=== PATIENT | female | born 1980 | race Caucasian/White ===

== ENCOUNTER 2021-02-16 08:40 | Inpatient (IN) | payer BC ==
[~2021-02-16] VITALS: Ht 157.5 cm; Wt 70.5 kg
--- NOTE | ~2021-02-16 | PROC ---
[address] [address] PROCEDURE REPORT Name: EMMA SHARP Room: [address] IN M.R.#: [id number] Admission: 02/16/21 Attend Phys: Joey Lawton Discharge: 02/22/21 Date of : 78 Report #: [id number] THIS REPORT FOR: cc: Laure Warner Linda J. DO SHELLY,Medical Records Staff ~ For Gi report, please see the Provation report in Perceptive 7 content. By: 1017Medical Records Staff SHELLY /SOSA
--- NOTE | ~2021-02-16 | PROC ---
[address] [address] PROCEDURE REPORT Name: EMMA SHARP Room: [address] IN M.R.#: [id number] Admission: 02/16/21 Attend Phys: Joey Lawton Discharge: 02/22/21 Date of : 78 Report #: [id number] THIS REPORT FOR: cc: Laure Warner Linda J. DO SHELLY,Medical Records Staff ~ For GI report, please see the Provation report in Perceptive 7 content. By: 1011Medical Records Staff SHELLY /SOSA
--- NOTE | ~2021-02-16 | CON ---
[address] [address] CONSULTATION Name: EMMA SHARP Room: [address] IN ..#: [id number] Admission: 02/16/21 Attend Phys: Joey Lawton Discharge: 02/22/21 Date of : 78 Report #: [id number] THIS REPORT FOR: cc: Laure Warner Linda J. DO Namin, Farid M. MD ~ DOC #: [id number] cc: Pato Amato DO, Linda J. McCormick, DO Farid M. Namin, MD DATE OF CONSULTATION: 02/20/2021 REASON FOR CONSULTATION: Anemia. HISTORY OF PRESENT ILLNESS: This is a 40-year-old alcoholic female, who presented to the hospital with 2 days of persistent nausea, vomiting and diarrhea. The patient reports that she also has had intermittent tarry black stool for the past month or so. She was found to be anemic. The patient required blood transfusion and currently appears stable. The patient has some signs of mild alcohol withdrawal. CT of abdomen and pelvis was obtained, which showed circumferential mural thickening of the sigmoid and rectum with some soft tissue stranding in this area. This may be consistent with proctitis/colitis. PAST MEDICAL HISTORY: Significant for history of hypertension, intermittent black stool for the past month, anxiety, depression and alcoholism. ALLERGIES: No known drug allergies. SOCIAL HISTORY: The patient is and lives at home. She admits to drinking alcohol. FAMILY HISTORY: Negative for GI malignancy. PHYSICAL EXAMINATION: VITAL SIGNS: Reveals blood pressure of 154/111, respirations 18, pulse 94 and temperature 98.3. LUNGS: Clear. CARDIOVASCULAR: Regular. ABDOMEN: Soft, tender to palpation in the epigastric region. Bowel sounds are positive. NEUROLOGIC: The patient is alert and oriented x3. LABORATORY DATA: Reveal sodium of 144, potassium is 2.7, BUN is 6, creatinine [facility] [address] [place] [address] CONSULTATION Name: EMMA SHARP Room: [address]#: [id number] Admission: 02/16/21 Attend Phys: Joey Lawton Discharge: 02/22/21 Date of : 78 Report #: [id number] is 0.5 and total bilirubin 0.6. Liver function tests reveal AST of 67 and ALT is 31 with alkaline phosphatase of 110. Phosphorus is 2.2 and albumin is 1.9. Ammonia level is less than 1.9. Iron saturation is 45. Folic acid is low at 5.9. WBC is 7.2, hemoglobin was 6.6 yesterday and after one unit of packed RBCs 7.7. Her hemoglobin on 02/16 was 11.9 when she was severely dehydrated. IMAGING: As discussed above. ASSESSMENT AND PLAN: The patient with severe anemia, intermittent melanotic stool and epigastric pain, who admits to taking ibuprofen at least several tabs per week. We will perform an upper scope to clear her upper GI first. As she had electrolyte derangements, she needs to get stabilized from this point prior to prepping her for colonoscopy, which we will perform prior to her discharge from hospital. The patient is agreeable with the plan. MD CARRILLO Perez/PATRICIA/SAMIR By: 0917 [id number] Jimenez MD /nt
[2021-02-16 08:52] VITALS: BP 77/51
[2021-02-16] MEDS ORDERED: TOPROL XL100 MG PO (08:56)
[2021-02-16 09:01] LABS: BE -10.3 mmol/L (-2 to +3); PCO2 VENOUS 39.3 mmHg (41.0-51.0); PO2 VENOUS 48.7 mmHg (35.0-45.0)
[2021-02-16 09:03] LABS: HEMATOCRIT 35.4 % (37.0-47.0); HEMOGLOBIN 11.9 gm/dL (12.0-15.0); MCH 35.9 pg (26.0-34.0); MCHC 33.6 g/dL (28.0-37.0); MCV 106.9 fL (80.0-100.0); MPV 9.3 fl. (7.2-11.1); NUCLEATED RBCS 0 /100WBC; PLATELET COUNT* 177 thou/uL (150-400); RBC 3.31 mil/uL (4.20-5.00); WBC 7.7 thou/uL (4.0-11.0)
[2021-02-16 09:25] LABS: CALCIUM 7.1 mg/dL (8.5-10.1); CREATININE 2.5 mg/dL (0.6-1.3)
[2021-02-16 09:30] LABS: ALBUMIN 3.1 g/dL (3.4-5.0); POTASSIUM 2.8 mmol/L (3.5-5.1); TOTAL BILIRUBIN 2.7 mg/dL (<0.1-1.0); TOTAL PROTEIN 6.5 g/dL (6.4-8.2)
[2021-02-16 09:45] LABS: ABSOLUTE LYMPHOCYTES 0.5 thou/uL (0.8-5.3); ABSOLUTE MONOCYTES 0.3 thou/uL (0.0-1.2); ABSOLUTE NEUTROPHILS 6.9 thou/uL (1.6-8.1); PLATELET ESTIMATE ADEQUATE
[2021-02-16 12:41] LABS: URINE BLOOD 1+ (Negative); URINE CLARITY CLEAR; URINE COLOR YELLOW; URINE GLUCOSE-RANDOM TRACE (Negative); URINE KETONES TRACE (Negative); URINE LEUKOCYTES-REFLEX TRACE (Negative); URINE PROTEIN 2+ (Negative); URINE SPECIFIC GRAVITY >= 1.030 (1.005-1.030)
[2021-02-16 12:44] LABS: URINE BILIRUBIN 2+ (Negative); URINE NITRITE-REFLEX POSITIVE (Negative)
[2021-02-16 12:51] LABS: BACTERIA-REFLEX 1-9 Few /HPF (None Seen); CASTS None Seen /LPF (None Seen); CRYSTALS None Seen /LPF (None Seen); ICTOTEST (BILI CONFIRMATORY) Positive (Negative); SQUAMOUS 0-3 Few /LPF (0-3); URINE RBC 0-2 Rare /HPF (0-2); URINE WBC-REFLEX 0-5 Rare /HPF (0-5)
--- NOTE | 2021-02-16 14:08 | EKG ---
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: ARLYN : 1980 Requested By: Radu Cifuentes Order Number: [id number] MD: Ramesh Lezama Measurements Intervals [place] Rate: 109 P: 38 SD: 122 QRS: 20 QRSD: 91 T: 59 QT: 388 QTc: 523 Interpretive Statements Sinus tachycardia Prolonged QT interval No previous ECG available for comparison Electronically Signed On 02-16-2021 14:07:55 CDT by Ramesh Lezama [email or web address] <ELECTRONICALLY SIGNED> By: Ramesh Lezama MD, [facility] 02/16/21 1407 0901 09 Ramesh Lezama MD, [facility] /EPI
[2021-02-16 14:27] LABS: AMP/METHAMP Negative (Negative); BARBITURATES Negative (Negative); BENZODIAZEPINES POSITIVE (Negative); COCAINE Negative (Negative); METHADONE Negative (Negative); OPIATES Negative (Negative); PCP Negative (Negative); THC POSITIVE (Negative)
--- NOTE | 2021-02-16 14:40 | NUR ---
PICC LINE PLACED BY SEA HAILE.
[2021-02-16 15:12] LABS: INR 1.1; PROTIME 11.4 Seconds (9.20-11.50)
[2021-02-16 15:13] LABS: MAGNESIUM 1.6 mg/dL (1.8-2.4); PHOSPHORUS* 4.5 mg/dL (2.5-4.9)
--- NOTE | 2021-02-16 15:41 | NUR ---
RIGHT BASILIC VESSEL ACCESSED FOR 5 MALAGASY TRIPLE LUMEN PICC. LINE PRE-TRIMMED TO 44 CM AND ADVANCED TO THE ZERO TIFFANIE WITH NO RESISTANCE MET. UPPER ARM CIRCUMFERENCE ABOVE INSERTION SITE= 9". SHERLOCK MAGNET AND 3CG CONFIRMATION OF TIP TERMINATION AT THE CAVOATRIAL JUNCTION APPRECIATED. GUIDE WIRE REMOVED, LINE FLUSHED AND INSERTION SITE DRESSED. REPORT GIVEN TO VISHAL HAILE.
[2021-02-16 15:56] VITALS: BP 92/64
[2021-02-16 16:10] VITALS: BP 102/56
--- NOTE | 2021-02-16 18:22 | NUR ---
RECEIVED REPORT FROM LAZARA RODGERS. PT ARRIVED ON UNIT AROUND 1610. IV INTACT RIGHT FOREARM AND RIGHT UPPER ARM PICC TRIPLE LUMEN. CWAW SCORE LESS THAN 8. PT HEART RATE STAYING IN 130'S. NOTIFIED DELIVERY MGR NO NEW ORDERS. MEDS GIVEN PER NOV. HOURLY ROUNDING PERFOMRED. ADMIT DONE. IN CHART. VITALS STABLE. PT HAVING DIARRHEA. CALL LIGHT WITH IN REACH. WILL CONTINUE TO MONITOR.
[2021-02-16 20:00] VITALS: BP 104/52
[2021-02-17] VITALS: BP 99/58
[2021-02-17 04:00] VITALS: BP 120/71
[2021-02-17 05:31] LABS: ABSOLUTE EOSINOPHILS 0.1 thou/uL (0.0-0.7); ABSOLUTE LYMPHOCYTES 0.1 thou/uL (0.8-5.3); ABSOLUTE MONOCYTES 0.1 thou/uL (0.0-1.2); ABSOLUTE NEUTROPHILS 5.6 thou/uL (1.6-8.1); BASOPHILS 0.2 %; HEMATOCRIT 24.4 % (37.0-47.0); MCH 36.4 pg (26.0-34.0); MCHC 33.6 g/dL (28.0-37.0); MCV 108.2 fL (80.0-100.0); MONOCYTES 1.6 %; NUCLEATED RBCS 0 /100WBC; POLYS 95.2 %; RBC 2.26 mil/uL (4.20-5.00); RDW-CV 22.8 % (10.5-14.5); WBC 5.9 thou/uL (4.0-11.0)
[2021-02-17 05:43] LABS: ALBUMIN 2.1 g/dL (3.4-5.0); CALCIUM 6.7 mg/dL (8.5-10.1); TOTAL BILIRUBIN 0.6 mg/dL (<0.1-1.0); TOTAL PROTEIN 5.5 g/dL (6.4-8.2)
[2021-02-17 05:58] LABS: CREATININE 1.2 mg/dL (0.6-1.3)
[2021-02-17 06:16] LABS: HEMOGLOBIN 8.2 gm/dL (12.0-15.0); PLATELET COUNT* 58 thou/uL (150-400)
[2021-02-17 08:00] VITALS: BP 105/62
[2021-02-17 12:18] VITALS: BP 106/65
--- NOTE | 2021-02-17 15:47 | NUR ---
Pt normally A&O. Resides at home with and kids. Independent. No DME. No hx of HH or SNF. Monitor for ETOH withdrawals. Anticipate dc in a few days.
--- NOTE | 2021-02-17 18:14 | NUR ---
RECEIVED REPORT AROUND 0715. ASSUMED CARE. VS AND ASSESSMENT CHARTED. IV INTACT RIGHT UPPER ARM PICC. TRIPLE LUMEN. HEART MONITOR ATTACHED AT ST. PT IN BED. VERY IMPULSIVE. MORE CALM WHEN FAMILY IS IN ROOM. MEDS GIVEN PER MAR. CWAW SCORES ABOVE 15 THIS SHIFT. HOURLY ROUNDING PERFORMED. OCCULT BLOOD SAMPLE TO BE COLLECTED. PT IS INCONTINENT THOUGH. FAMILY UPDATED ON PT. PT MUMBLING, VERY HARD TO UNDERSTAND RIGHT NOW. HAS VISUAL AND AUDITORY HALLUCINATIONS. CALL LIGHT WITH IN REACH. WILL CONTINUE TO MONITOR.
[2021-02-17 18:23] VITALS: BP 124/73
[2021-02-17 19:30] VITALS: BP 115/64
[2021-02-18] VITALS (7 sets, daily range): BP systolic 127–141; BP diastolic 77–107
--- NOTE | 2021-02-18 05:24 | NUR ---
PT SLEPT ON AND OFF THIS SHIFT. ASSESSMENT DOCUMENTED. MEDS GIVEN PER E-MAR. PICC PATENT, FLUIDS INFUSING. PT HALLUCINATING, WORDS UNINTELLIGABLE AT BEGINING OF SHIFT, ATIVAN GIVEN PER E-MAR FOR CIWA SCORES. PT BECOMING MORE ALERT AND ABLE TO SPEAK SOME SENTENCES AT THIS POINT. FALL PRECAUTIONS IN PLACE. WILL CONTINUE WITH PLAN OF CARE.
[2021-02-18 06:26] LABS: CALCIUM 7.2 mg/dL (8.5-10.1); CREATININE 0.7 mg/dL (0.6-1.3); PHOSPHORUS* 2.2 mg/dL (2.5-4.9)
[2021-02-18 06:30] LABS: POTASSIUM 2.2 mmol/L (3.5-5.1)
--- NOTE | 2021-02-18 15:31 | NUR ---
Less delusional, continue to monitor ETOH withdrawals. Anticipate dc in a day or two.
--- NOTE | 2021-02-18 19:32 | NUR ---
PT UP TO CHAIR TODAY. PT TRIED TO STAND UP BY HERSELF, AT HERSIDE. PT SAT BACK DOWN ON HER CHAIR. PT MORE ALERT TODAY, PT WAS TOLD BY THE DR THAT IF SHE DOES NOT STOP DRINKING SHE WILL . PT UP WITH ASSISTANCE. VSS AFEBRILE. PT HAS BEEN RUNNING SR ON MONITO. PT HAS A TRIPLE LUMEN PICC IN HER RIGHT UPPER ARM. PT ATE A GOOD SUPPER TODAY BUT DID NOT EAT BREAKFAST OR LUNCH. WILL CONTINUE TO MONITOOR PLAN OF CARE.
[2021-02-19] VITALS (7 sets, daily range): BP systolic 142–159; BP diastolic 82–115
[2021-02-19 04:50] LABS: ABSOLUTE EOSINOPHILS 0.1 thou/uL (0.0-0.7); ABSOLUTE LYMPHOCYTES 0.8 thou/uL (0.8-5.3); ABSOLUTE MONOCYTES 0.7 thou/uL (0.0-1.2); ABSOLUTE NEUTROPHILS 3.9 thou/uL (1.6-8.1); BASOPHILS 0.5 %; EOSINOPHILS 1.9 %; MCH 36.5 pg (26.0-34.0); MCHC 33.7 g/dL (28.0-37.0); MCV 108.3 fL (80.0-100.0); MONOCYTES 12.9 %; MPV 9.7 fl. (7.2-11.1); NUCLEATED RBCS 1 /100WBC; PLATELET COUNT* 70 thou/uL (150-400); POLYS 69.7 %; RBC 1.82 mil/uL (4.20-5.00); RDW-CV 22.7 % (10.5-14.5); WBC 5.7 thou/uL (4.0-11.0)
[2021-02-19 05:04] LABS: ALBUMIN 1.9 g/dL (3.4-5.0); CALCIUM 7.6 mg/dL (8.5-10.1); CREATININE 0.5 mg/dL (0.6-1.3); TOTAL BILIRUBIN 0.6 mg/dL (<0.1-1.0); TOTAL PROTEIN 5.4 g/dL (6.4-8.2)
[2021-02-19 05:44] LABS: HEMOGLOBIN 6.6 gm/dL (12.0-15.0)
[2021-02-19 05:45] LABS: HEMATOCRIT 19.7 % (37.0-47.0)
[2021-02-19 06:12] LABS: POTASSIUM 2.6 mmol/L (3.5-5.1)
--- NOTE | 2021-02-19 06:30 | NUR ---
assumed care of patient at 1930. Received critical HGB and HCT results called to . Received order to transfuse 1 unit of blood and to collect stool sample. Patient A&O x 2. Attempted to explain need for blood. Did obtain a verbal consent from patient's mother hakan pulido to transfuse blood due to patients etoh withdrawl status
[2021-02-19 09:27] LABS: % SATURATION 45 % (20-39); IRON 63 ug/dL (50-175)
--- NOTE | 2021-02-19 15:16 | NUR ---
Pt anemic, plan to transfuse today. No weekend dc planned.
--- NOTE | 2021-02-19 19:00 | NUR ---
Pt fell today. Was on BSC for BM, and asked for privacy; then attempted to get to bed by herself when she fell. Pt denies injury; VSS except DBP elevated. BP 150s/110s since early afternoon. Pt received 1 unit PRBCs for Hgb 6.6. Pt tolerated transfusion well; states she had never received a transfusion previously. Pt states she is drowsy and keeps falling asleep; otherwise no complaints. Will continue to monitor.
[2021-02-20 00:03] VITALS: BP 123/85
[2021-02-20 03:31] LABS: HEMATOCRIT 23.2 % (37.0-47.0); HEMOGLOBIN 7.7 gm/dL (12.0-15.0); MCH 34.5 pg (26.0-34.0); MCHC 33.3 g/dL (28.0-37.0); MCV 103.6 fL (80.0-100.0); MPV 9.7 fl. (7.2-11.1); RBC 2.24 mil/uL (4.20-5.00); RDW-CV 25.5 % (10.5-14.5); WBC 7.2 thou/uL (4.0-11.0)
[2021-02-20 03:34] LABS: CALCIUM 7.5 mg/dL (8.5-10.1); CREATININE 0.5 mg/dL (0.6-1.3)
[2021-02-20 03:36] LABS: POTASSIUM 2.7 mmol/L (3.5-5.1)
[2021-02-20 03:45] VITALS: BP 139/90
--- NOTE | 2021-02-20 04:43 | NUR ---
ASSUMED CARE AT 1910H, ON RA AND TOLERATED. ORIENTED BUT STILL DROWSY. SHE WAS IMPULSIVE EARLY IN MY SHIFT BUT NOW SHE'S USING HER CALL LIGHT. PT ON HER MENSTRUAL PERIOD, ACCODING TO HER IT'S ALMOST DONE. 2X WATERY BM IN MY SHIFT. CONTINUE MONITORING AND TOWARDS GOALS. LATEST CIWA OF 2.
[2021-02-20 07:52] VITALS: BP 154/111
[2021-02-20 12:00] VITALS: BP 151/113
[2021-02-20 16:00] VITALS: BP 141/97
--- NOTE | 2021-02-20 16:18 | NUR ---
Pt more alert today, and states she is eager to get up and walk in hallway. States she wants to get stronger and be ready for discharge. Dr. Jimenez ordered regular diet, and then NPO after MN tonight for EGD tomorrow morning at 0900. Pt has had multiple loose BMs over night and today, appears green in color. Also voiding without difficulty, using BSC with assistance and calling for help appropriately. Pt appears to be in good spirits and rather humorous today. DBP continues to be elevated in 100s-110s. SR-ST per monitor. Reports good appetite today. Will continue to monitor.
[2021-02-20 19:40] VITALS: BP 133/96
[2021-02-21] VITALS (8 sets, daily range): BP systolic 134–178; BP diastolic 85–114
[2021-02-21 01:58] LABS: HEMATOCRIT 23.5 % (37.0-47.0); HEMOGLOBIN 7.8 gm/dL (12.0-15.0); MCH 34.2 pg (26.0-34.0); MCHC 33.2 g/dL (28.0-37.0); MCV 102.9 fL (80.0-100.0); MPV 9.5 fl. (7.2-11.1); RBC 2.28 mil/uL (4.20-5.00); WBC 13.9 thou/uL (4.0-11.0)
[2021-02-21 02:09] LABS: ALBUMIN 1.8 g/dL (3.4-5.0); CALCIUM 7.6 mg/dL (8.5-10.1); CREATININE 0.5 mg/dL (0.6-1.3); MAGNESIUM 1.5 mg/dL (1.8-2.4); POTASSIUM 3.3 mmol/L (3.5-5.1); TOTAL BILIRUBIN 0.5 mg/dL (<0.1-1.0); TOTAL PROTEIN 5.3 g/dL (6.4-8.2)
--- NOTE | 2021-02-21 06:26 | NUR ---
ASSUMED PT CARE AT APPROX. 1930. PT LAYING IN BED. VSS. PT DENIED C/O. MEDICATIONS ADMINISTERED PRESCRIBED. 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 FALL PRECAUTIONS IN PLACE FOR SAFETY. HOURLY ROUNDS COMPLETE CHARTED. ASSESSMENTS COMPLETED. WILL CONT. TO MONITOR.
--- NOTE | 2021-02-21 20:00 | NUR ---
I ASSUMED CARE OF THE PATIENT AT 0700. SHE IS ALERT AND ORIENTED X4 AND IS UP AD OBEY. BED IS IN THE LOW LOCKED POSITION AND CALL LIGHT IS IN REACH. PAIN IS DENIED. BOWEL PREP IS STARTED AND COMMODE IS PLACED NEAR THE BED. POTASSIUM AND MAGNESIUM ARE REPLACED. SHE IS CLOSER TO BASELINE AND DOESN'T SEEM TO HAVE AN UNEVEN GATE. ORIENTATION IS IMPROVING. WILL CONTINUE TO MONITOR.
[2021-02-22 03:51] VITALS: BP 125/80
--- NOTE | 2021-02-22 04:55 | NUR ---
ASSUMED PT CARE AT APPROX. 1930. PT LAYING IN BED. VSS. PT DENIED C/O. PT DRANK BOWEL PREP DURING THE NOC AND COMPLETED IT AT MIDNIGHT. STOOL IS CLEARED. PT CURRENTLY IS ORDERED CLEAR LIQUID DIET UNTIL 9AM AND THEN WILL BE NPO. EGD SCHEDULED FOR 1400. MEDICATIONS ADMINISTERED PRESCRIBED. 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 PT COMPLAINED OF GARCIA. SEE EMAR FOR DETAILS. FALL PRECAUTIONS IN PLACE FOR SAFETY. HOURLY ROUNDS COMPLETE CHARTED. CALL LIGHT WITHIN REACH. ASSESSMENTS COMPLETED. NO ACUTE CHANGES THIS SHIFT. WILL CONT. TO MONITOR.
[2021-02-22 08:00] VITALS: BP 112/80
[2021-02-22] MEDS ORDERED: PNV 29-1 TABLE1 EACH PO (09:38)
[2021-02-22] MEDS ORDERED: AUGMENTIN 875-1 EACH PO (09:38)
[2021-02-22] MEDS ORDERED: PROTONIX40 M2 PO (09:38)
[2021-02-22 09:52] LABS: HEMATOCRIT 26.8 % (37.0-47.0); HEMOGLOBIN 8.7 gm/dL (12.0-15.0); MCH 34.1 pg (26.0-34.0); MCHC 32.3 g/dL (28.0-37.0); MCV 105.8 fL (80.0-100.0); MPV 10.1 fl. (7.2-11.1); RBC 2.54 mil/uL (4.20-5.00); WBC 15.9 thou/uL (4.0-11.0)
[2021-02-22 09:56] LABS: CALCIUM 8.3 mg/dL (8.5-10.1); CREATININE 0.5 mg/dL (0.6-1.3); POTASSIUM 3.7 mmol/L (3.5-5.1)
--- NOTE | 2021-02-22 12:37 | NUR ---
Pt to dc to home today post colonoscopy pending results. CM to offer ETOH resources at mt.
[2021-02-22 14:20] VITALS: BP 112/80
--- NOTE | 2021-02-24 17:07 | PATH ---
[address] [address] PATHOLOGY RPT PROCEDURE Name: TRUDI SHARP Room: [address] IN M.R.#: [id number] Admission: 02/16/21 Date of : 78 Discharge: 02/22/21 Report #: [id number] Path Case #: [id number] [facility] Accession Number: [id number] . 01 Material submitted: . stomach - GASTRIC BX . 01 Clinical history: . HIATAL HERNIA, RETAINED FOOD IN STOMACH, GASTRITIS GI BLEEDING . 02 Diagnosis: Gastric biopsy: - Moderate nonspecific chronic gastritis, negative for Helicobacter pylori organisms and dysplasia. (COLEMAN:nehemiah; 02/24/2021) . Special stain: H. pylori immuno QMS 02/24/2021 1229 Local . 02 Electronically signed: . Eben Pedroza MD, Pathologist NPI- [id number] . 01 Gross description: . The specimen is received in formalin, labeled "Calos, Trudi, gastric biopsy" received as multiple fragments of soft woo tissue measuring up to 0.6 cm. Entirely submitted in A1. ([facility]; 02/22/2021) ELODIA/ELODIA 02/24/2021 1229 Local . 02 Pathologist provided ICD-10: K29.50 . 02 CPT . 912249, [id number] Specimen Comment: A courtesy copy of this report has been sent to [phone] Specimen Comment: [phone] Specimen Comment: Report sent to / DR ALARCON Performed at: 01 [facility] [address], [place], [place] [id number] MD Angel Villanueva MD Phone: [phone] Performed at: 02 [facility] [address], [place], [place] [id number] MD Eben Pedroza MD Phone: [phone]
== END 2021-02-22 14:55 | disposition home or self-care (01) | DRG 391 ==
LOC: M.ERS 08:40 → M.TBA-ER 09:44 → M.2W 09:44
PROVIDERS: Family Medicine; Internal Medicine; ADMIT Internal Medicine; ATTEND Internal Medicine
PROC: 02HV33Z Insertion of Infusion Device into Superior Vena Cava, Percutaneous Approach (ICD-10-PCS; 2021-02-16)
PROC: B548ZZA Ultrasonography of Superior Vena Cava, Guidance (ICD-10-PCS; 2021-02-16)
PROC: 30233N1 Transfusion of Nonautologous Red Blood Cells into Peripheral Vein, Percutaneous Approach (ICD-10-PCS; principal; 2021-02-19)
PROC: 0DJD8ZZ Inspection of Lower Intestinal Tract, Via Natural or Artificial Opening Endoscopic (ICD-10-PCS; 2021-02-21)
PROC: 0DB68ZX Excision of Stomach, Via Natural or Artificial Opening Endoscopic, Diagnostic (ICD-10-PCS; 2021-02-21)
DX: K52.9 Noninfective gastroenteritis and colitis, unspecified (principal); K29.71 Gastritis, unspecified, with bleeding; N17.9 Acute kidney failure, unspecified; F10.239 Alcohol dependence with withdrawal, unspecified; N39.0 Urinary tract infection, site not specified; F41.9 Anxiety disorder, unspecified; F32.9 Major depressive disorder, single episode, unspecified; E87.6 Hypokalemia; E86.0 Dehydration; I10 Essential (primary) hypertension; D64.9 Anemia, unspecified; K62.89 Other specified diseases of anus and rectum; M25.572 Pain in left ankle and joints of left foot; D69.6 Thrombocytopenia, unspecified; K44.9 Diaphragmatic hernia without obstruction or gangrene; K64.8 Other hemorrhoids; Z20.822 Contact with and (suspected) exposure to COVID-19; Z79.899 Other long term (current) drug therapy